=== PATIENT | male | born 1945 | race Caucasian/White ===

== ENCOUNTER 2023-11-30 17:00 | Emergency (ER) | payer MEDICARE, OTHER ==
--- NOTE | 2023-11-30 17:09 | ED ---
Abdominal Pain HPI - General Chief Complaint: Abdominal Pain Stated Complaint: Abdominal Pain Time Seen by Provider: 11/30/23 17:08 Source: patient, RN notes reviewed Mode of arrival: wheelchair Limitations: no limitations - History of Present Illness Initial Comments: This is a 78-year-old male past history of A-fib with a Watchman device presents to the emergency department as a referral from urgent care with complaint of left-sided flank and abdominal pain that started this morning around 0700. States that the pain starts in his back and wraps and around into his front, is constant and is a stabbing sensation. States that he was informed that he has blood in his urine at urgent care. Additionally, patient is incontinent. endorses nausea, no vomiting. He denies chest pain, chest pressure, dizziness, lightheadedness, blurry vision, double vision, fatigue, fevers. Denies history of kidney stones, kidney infections, urinary tract infections. Patient underwent prostate procedure for 3 years ago due to prostate cancer and cholecystectomy. Denies current use of chemo or radiation. - Related Data Previous Rx's Medication Instructions Recorded HYDROcodone/APAP 5-325MG [[place] 5] 1 each PO Q6HR PRN #12 tab 11/30/23 Ondansetron Odt [Zofran Odt] 4 mg PO Q8HR PRN #10 tab 11/30/23 Tamsulosin [Flomax] 0.4 mg PO DAILY #7 cap 11/30/23 Allergies Allergy/AdvReac Type Severity Reaction Status Date / Time ceftriaxone [From Rocephin] Allergy Rash/Hives Verified 11/30/23 17:06 polyethylene glycol 3350 AdvReac Unknown Verified 11/30/23 17:06 [From Miralax] Review of Systems ROS Statement: Those systems with pertinent positive or pertinent negative responses have been documented in the HPI. ROS Other: All systems not noted in ROS Statement are negative. Past Medical History Past Medical History: Atrial Fibrillation, Cancer, Hypertension Additional Past Medical History / Comment(s): watchman device History of Any Multi-Drug Resistant Organisms: None Reported Past Surgical History: Hernia Repair, Joint Replacement, Orthopedic Surgery, Prostate Surgery Past Psychological History: No Psychological Hx Reported Smoking Status: Never smoker Past Alcohol Use History: Occasional Past Drug Use History: None Reported General Exam Limitations: no limitations General appearance: alert, in no apparent distress Head exam: Present: atraumatic, normocephalic, normal inspection Eye exam: Present: normal appearance, PERRL, EOMI. Absent: scleral icterus, conjunctival injection, periorbital swelling ENT exam: Present: normal exam, mucous membranes moist Neck exam: Present: normal inspection. Absent: tenderness, meningismus, lymphadenopathy Respiratory exam: Present: normal lung sounds bilaterally. Absent: respiratory distress, wheezes, rales, rhonchi, stridor Cardiovascular Exam: Present: irregular rhythm (Atrial fibrillation), normal heart sounds GI/Abdominal exam: Present: soft, tenderness (left mid abdomen), normal bowel sounds. Absent: guarding, rebound, rigid, pulsatile mass, hernia Extremities exam: Present: normal inspection, full ROM, normal capillary refill. Absent: tenderness, pedal edema, joint swelling, calf tenderness Back exam: Present: normal inspection, CVA tenderness (L) Neurological exam: Present: alert, oriented X3, CN II-XII intact Psychiatric exam: Present: normal affect, normal mood Skin exam: Present: warm, dry, intact, normal color. Absent: rash Course Vital Signs 11/30/23 11/30/23 11/30/23 17:02 19:45 21:26 Temperature 98.3 F 98.6 F Pulse Rate 83 72 73 Respiratory 18 16 16 Rate Blood Pressure 190/108 129/97 126/87 O2 Sat by Pulse 98 100 98 Oximetry Medical Decision Making - Medical Decision Making Was pt. sent in by a medical professional or institution (, GAB, RN POSTPARTUM, urgent care, hospital, or group home...) When possible be specific @ -Patient was sent in by an urgent care due to complaints of left-sided abdominal pain, requested imaging to rule out other pathology such as kidney stone, kidney infection, or diverticulitis. Did you speak to anyone other than the patient for history (EMS, parent, family, police, friend...)? What history was obtained from this source @ -No Did you review nursing and triage notes (agree or disagree)? Why? @ -I reviewed and agree with nursing and triage notes Were old charts reviewed (outside hosp., previous admission, EMS record, old EKG, old radiological studies, urgent care reports/EKG's, group home records)? Report findings @ -No old charts were reviewed Differential Diagnosis (chest pain, altered mental status, abdominal pain women, abdominal pain men, vaginal bleeding, weakness, fever, dyspnea, syncope, headache, dizziness, GI bleed, back pain, seizure, CVA, palpatations, mental health, musculoskeletal)? @ -Differential Abdominal Pain Men: Appendicitis, cholecystitis, diverticulosis, ischemic bowel, pancreatitis, hepatitis, UTI, gastroenteritis, AAA, incarcerated hernia, bowel obstruction, constipation, inflammatory bowel, hepatitis, peptic ulcer disease, splenic infarction, perforated viscus, testicular torsion, this is not meant to be an all-inclusive list EKG interpreted by me (3pts min.). @ -completed at 1712, atrial fibrillation with occasional PVCs, ventricular rate 85. No acute signs of ischemia. X-rays interpreted by me (1pt min.) @ -None done CT interpreted by me (1pt min.). @ -CT abdomen pelvis without contrast reveals moderate left-sided hydroureteronephrosis with periureteral and perinephric fat stranding, 3 mm calcification in the distal left ureter U/S interpreted by me (1pt. min.). @ -None done What testing was considered but not performed or refused? (CT, X-rays, U/S, labs)? Why? @ -None What meds were considered but not given or refused? Why? @ -None Did you discuss the management of the patient with other professionals (professionals i.e. , PA, RN POSTPARTUM, lab, RT, psych nurse, social work job titles, elementary ell teacher, teacher, aircraft electronics technical officer, social work case manager)? Give summary @ -No Was smoking cessation discussed for >3mins.? @ -No Was critical care preformed (if so, how long)? @ -No Were there social determinants of health that impacted care today? How? (Homelessness, low income, unemployed, alcoholism, drug addiction, transportation, low edu. Level, literacy, decrease access to med. care, nursing home, rehab)? @ -No Was there de-escalation of care discussed even if they declined (Discuss DNR or withdrawal of care, Hospice)? DNR status @ -No What co-morbidities impacted this encounter? (DM, HTN, Smoking, COPD, CAD, Ca ncer, CVA, ARF, Chemo, Hep., AIDS, mental health diagnosis, sleep apnea, morbid obesity)? @ -None Was patient admitted / discharged? Hospital course, mention meds given and route, prescriptions, significant lab abnormalities, going to OR and other pertinent info. @ -78-year-old male with left-sided abdominal and flank pain. On examination patient noted to have tenderness over the left flank and abdomen. There is no rigidity or rebound tenderness noted. At this time patient will be treated with IV pain medication, antiemetics, and will be sent for CT imaging of the abdomen and pelvis. Additionally labs will be ordered and urinalysis, patient is agreement with this plan. CBC unremarkable, lactic acid 1.2 nonelevated. Additionally urine reveals moderate blood, 114 red blood cells. Discussion with patient at bedside that his symptoms are due to 3 mm stone. He will be provided with a urology referral. Additionally sent home with prescriptions including Zofran, Flomax, and pain medication as needed. All questions answered at bedside. Patient stable for discharge. Case discussed with Dr. Montague Undiagnosed new problem with uncertain prognosis? @ -No Drug Therapy requiring intensive monitoring for toxicity (Heparin, Nitro, Insulin, Cardizem)? @ -No Were any procedures done? @ -No Diagnosis/symptom? @ -Nephrolithiasis Acute, or Chronic, or Acute on Chronic? @ -Acute Uncomplicated (without systemic symptoms) or Complicated (systemic symptoms)? @ -Uncomplicated Side effects of treatment? @ -No Exacerbation, Progression, or Severe Exacerbation? @ -No Poses a threat to life or bodily function? How? (Chest pain, [place], [place], pneumonia, PE, COPD, DKA, ARF, appy, cholecystitis, CVA, Diverticulitis, Homicidal, Suicidal, threat to staff... and all critical care pts) @ -No - Lab Data Result diagrams: 11/30/23 17:30 11/30/23 17:30 Lab Results 11/30/23 11/30/23 11/30/23 Range/Units 17:30 17:30 17:30 WBC 7.9 (3.8-10.6) k/uL RBC 4.74 (4.30-5.90) m/uL Hgb 14.2 (13.0-17.5) gm/dL Hct 43.6 (39.0-53.0) % MCV 92.1 (80.0-100.0) fL MCH 30.1 (25.0-35.0) pg MCHC 32.6 (31.0-37.0) g/dL RDW 13.3 (11.5-15.5) % Plt Count 169 (150-450) k/uL MPV 7.7 Neutrophils % 77 % Lymphocytes % 13 % Monocytes % 7 % Eosinophils % 1 % Basophils % 0 % Neutrophils # 6.1 (1.3-7.7) k/uL Lymphocytes # 1.0 (1.0-4.8) k/uL Monocytes # 0.6 (0-1.0) k/uL Eosinophils # 0.0 (0-0.7) k/uL Basophils # 0.0 (0-0.2) k/uL Sodium 139 (137-145) mmol/L Potassium 4.5 (3.5-5.1) mmol/L Chloride 106 (98-107) mmol/L Carbon Dioxide 26 (22-30) mmol/L Anion Gap 7 mmol/L BUN 17 (9-20) mg/dL Creatinine 1.09 (0.66-1.25) mg/dL Est GFR (CKD-EPI)AfAm 75 (>60 ml/min/1.73 sqM) Est GFR (CKD-EPI)NonAf 65 (>60 ml/min/1.73 sqM) Glucose 116 H (74-99) mg/dL Plasma Lactic Acid Maurilio 1.2 (0.7-2.0) mmol/L Calcium 9.4 (8.4-10.2) mg/dL Total Bilirubin 1.3 (0.2-1.3) mg/dL AST 30 (17-59) U/L ALT 21 (4-49) U/L Alkaline Phosphatase 100 (38-126) U/L Total Protein 6.6 (6.3-8.2) g/dL Albumin 4.3 (3.5-5.0) g/dL Lipase 80 (23-300) U/L Urine Color Urine Appearance (Clear) Urine pH (5.0-8.0) Ur Specific [place] (1.001-1.035) Urine Protein (Negative) Urine Glucose (UA) (Negative) Urine Ketones (Negative) Urine Blood (Negative) Urine Nitrite (Negative) Urine Bilirubin (Negative) Urine Urobilinogen (<2.0) mg/dL Ur Leukocyte Esterase (Negative) Urine RBC (0-5) /hpf Urine WBC (0-5) /hpf Ur Squamous Epith Cells (0-4) /hpf Hyaline Casts (0-2) /lpf Urine Mucus (None) /hpf 11/30/23 Range/Units 17:30 WBC (3.8-10.6) k/uL RBC (4.30-5.90) m/uL Hgb (13.0-17.5) gm/dL Hct (39.0-53.0) % MCV (80.0-100.0) fL MCH (25.0-35.0) pg MCHC (31.0-37.0) g/dL RDW (11.5-15.5) % Plt Count (150-450) k/uL MPV Neutrophils % % Lymphocytes % % Monocytes % % Eosinophils % % Basophils % % Neutrophils # (1.3-7.7) k/uL Lymphocytes # (1.0-4.8) k/uL Monocytes # (0-1.0) k/uL Eosinophils # (0-0.7) k/uL Basophils # (0-0.2) k/uL Sodium (137-145) mmol/L Potassium (3.5-5.1) mmol/L Chloride (98-107) mmol/L Carbon Dioxide (22-30) mmol/L Anion Gap mmol/L BUN (9-20) mg/dL Creatinine (0.66-1.25) mg/dL Est GFR (CKD-EPI)AfAm (>60 ml/min/1.73 sqM) Est GFR (CKD-EPI)NonAf (>60 ml/min/1.73 sqM) Glucose (74-99) mg/dL Plasma Lactic Acid Maurilio (0.7-2.0) mmol/L Calcium (8.4-10.2) mg/dL Total Bilirubin (0.2-1.3) mg/dL AST (17-59) U/L ALT (4-49) U/L Alkaline Phosphatase (38-126) U/L Total Protein (6.3-8.2) g/dL Albumin (3.5-5.0) g/dL Lipase (23-300) U/L Urine Color Light Yellow Urine Appearance Clear (Clear) Urine pH 5.0 (5.0-8.0) Ur Specific [place] 1.013 (1.001-1.035) Urine Protein Negative (Negative) Urine Glucose (UA) Negative (Negative) Urine Ketones Negative (Negative) Urine Blood Moderate H (Negative) Urine Nitrite Negative (Negative) Urine Bilirubin Negative (Negative) Urine Urobilinogen <2.0 (<2.0) mg/dL Ur Leukocyte Esterase Negative (Negative) Urine RBC 114 H (0-5) /hpf Urine WBC 2 (0-5) /hpf Ur Squamous Epith Cells <1 (0-4) /hpf Hyaline Casts 1 (0-2) /lpf Urine Mucus Occasional H (None) /hpf Disposition Clinical Impression: Nephrolithiasis Disposition: HOME SELF-CARE Condition: Good Instructions (If sedation given, give patient instructions): Kidney Stones (ED) Additional Instructions: Return to the emergency department if your symptoms worsen or do not improve. Follow-up with urology referral. Prescriptions: Tamsulosin [Flomax] 0.4 mg PO DAILY #7 cap HYDROcodone/APAP 5-325MG [[place] 5] 1 each PO Q6HR PRN #12 tab PRN Reason: Pain Ondansetron Odt [Zofran Odt] 4 mg PO Q8HR PRN #10 tab PRN Reason: Nausea Is patient prescribed a controlled substance at d/c from ED?: No Referrals: None,Stated [Primary Care Provider] - 1-2 days Kilo Rangel MD [STAFF PHYSICIAN] - 1-2 days Time of Disposition: 20:49
[2023-11-30] MEDS: ONDANSETRON 4 MG/2 ML VIAL IVP STA (17:37)
[2023-11-30] MEDS: HYDROmorphone 1 MG/ML 1 ML SYRINGE IVP STA (17:39)
[2023-11-30 17:55] LABS: Basophils % (A) 0 %; Eosinophils % (A) 1 %; HCT 43.6 % (39.0-53.0); HGB 14.2 gm/dL (13.0-17.5); Lymphocytes % (A) 13 %; MCH 30.1 pg (25.0-35.0); MCHC 32.6 g/dL (31.0-37.0); MCV 92.1 fL (80.0-100.0); Mean Platelet Volume 7.7; Monocytes # (A) 0.6 k/uL (0-1.0); Monocytes % (A) 7 %; Neutrophils # (A) 6.1 k/uL (1.3-7.7); Neutrophils % (A) 77 %; Platelet Count 169 k/uL (150-450); RBC 4.74 m/uL (4.30-5.90); RDW 13.3 % (11.5-15.5); WBC 7.9 k/uL (3.8-10.6)
[2023-11-30 18:10] LABS: Appearance,Urine Clear (Clear); Bilirubin,Urine Negative (Negative); Blood,Urine Moderate (Negative); Color,Urine Light Yellow; Glucose,Urine (UA) Negative (Negative); Hyaline Casts,Urine 1 /lpf (0-2); Ketones,Urine Negative (Negative); Leukocyte Esterase,Urine Negative (Negative); Mucus,Urine Occasional /hpf; Nitrite,Urine Negative (Negative); Protein,Urine Negative (Negative); RBC,Urine 114 /hpf (0-5); Specific Gravity,Urine 1.013 (1.001-1.035); Squamous Epithelial Cell,Urine <1 /hpf (0-4); Urobilinogen,Urine <2.0 mg/dL (<2.0); WBC,Urine 2 /hpf (0-5)
[2023-11-30 18:32] LABS: ALT 21 U/L (4-49); AST 30 U/L (17-59); African American GFR (CKD) 75 (>60 ml/min/1.73 sqM); Albumin 4.3 g/dL (3.5-5.0); Alkaline Phosphatase 100 U/L (38-126); Anion Gap 7 mmol/L; Blood Urea Nitrogen 17 mg/dL (9-20); Calcium 9.4 mg/dL (8.4-10.2); Carbon Dioxide 26 mmol/L (22-30); Chloride 106 mmol/L (98-107); Glucose 116 mg/dL (74-99); Lipase 80 U/L (23-300); Non-African American GFR(CKD) 65 (>60 ml/min/1.73 sqM); Potassium 4.5 mmol/L (3.5-5.1); Sodium 139 mmol/L (137-145); Total Bilirubin 1.3 mg/dL (0.2-1.3); Total Protein 6.6 g/dL (6.3-8.2)
[2023-11-30 20:35] VITALS: RESP 16; TEMP 98.6
--- NOTE | 2023-11-30 20:35 | CT ---
EXAMINATION TYPE: CT abdomen pelvis wo con CT DLP: 788.4 mGycm, Automated exposure control for dose reduction was used. DATE OF EXAM: 11/30/2023 6:43 PM COMPARISON: None. CLINICAL INDICATION:Male, 78 years old with history of LLQ and flank pain, started this morning; VOMI TING/ABD PAIN TECHNIQUE: Axial CT of the abdomen and pelvis. Sagittal and coronal reformats were created on a [employer] workstation. Contrast used: mL of , (none if empty) Oral contrast used: without Oral Contrast (none if empty) FINDINGS: LOWER CHEST: Lung bases are clear. Heart size upper normal. Small calcification along the left anteri or heart may be related to coronary artery. ABDOMEN LIVER, GALLBLADDER AND BILE DUCTS: Somewhat small cirrhotic hepatic morphology suggested. Status post cholecystectomy. Nondilated biliary tree. PANCREAS: Mildly fatty infiltrated without acute findings SPLEEN: Unremarkable. ADRENAL GLANDS: Thickened and small nodular appearance of the adrenals, could be due to hyperplasia a nd/or adenomatoid changes.. KIDNEYS AND URETERS: There are a few punctate calcifications in the inferior pole right kidney. No ur eteral calculi or hydronephrosis is seen. There are several punctate and slightly larger calculi in t he mid to inferior pole left kidney. There is moderate left-sided hydroureteronephrosis with periuret eral and perinephric fat stranding, which appears related to a 3 mm calcification in the distal left ureter. PELVIS BLADDER: Otherwise unremarkable. REPRODUCTIVE: Unremarkable. ABDOMEN & PELVIS STOMACH AND BOWEL: Stomach and small bowel are nondistended, no evidence of obstruction. There appe ars to be moderately large duodenal diverticulum formation. No dilatation of the more distal bowel lo ops. Notices a gas appendicitis. There is moderate stool throughout colon without acute abnormality o bserved. PERITONEUM/RETROPERITONEUM: No evidence of pneumoperitoneum or free fluid. VASCULATURE: Mild to moderate atherosclerotic calcifications are present throughout the abdominal aor ta and its branches. No evidence of aortic aneurysm. LYMPH NODES: No enlarged nodes by CT size criteria. SOFT TISSUE/ABDOMINAL WALL: Unremarkable MUSCULOSKELETAL: No acute osseous abnormalities. Mild degenerative changes. IMPRESSION: Moderate left-sided hydroureteronephrosis with periureteral and perinephric fat stranding, which appe ars related to a 3 mm calcification in the distal left ureter.
[2023-11-30] MEDS: ONDANSETRON 4 MG ODT STARTER PACK 2 TAB BTL PO STA (21:23)
[2023-11-30 22:14] VITALS: BP 126/87; PULSE 73
== END 2023-11-30 21:27 | disposition home or self-care (01) ==
LOC: EC 17:00
DX: N13.2 Hydronephrosis with renal and ureteral calculous obstruction (principal); Z88.1 Allergy status to other antibiotic agents; Z88.8 Allergy status to other drugs, medicaments and biological substances
CPT/HCPCS: 99284 ×2; 96374 ×2; 96375 ×2; 36415; 93005; 80053; 83605; 83690; 85025; 81001; 74176; J2405; J1170; S0119

== ENCOUNTER → 2024-01-04 | Outpatient (CLI) | payer MEDICARE, OTHER ==
[2024-01-04 18:42] LABS: Basophils # (A) 0.03 X 10*3/uL (0.00-0.10); Basophils % (A) 0.4 %; Eosinophils # (A) 0.11 X 10*3/uL (0.04-0.35); Eosinophils % (A) 1.5 %; HCT 44.3 % (39.6-50.0); HGB 14.6 g/dL (13.0-17.0); Lymphocytes # (A) 1.64 X 10*3/uL (0.90-5.00); Lymphocytes % (A) 22.7 %; MCH 30.5 pg (27.0-32.0); MCV 92.7 FL (80.0-97.0); Mean Platelet Volume 10.2 FL (9.5-12.2); Monocytes # (A) 0.63 X 10*3/uL (0.20-1.00); Monocytes % (A) 8.7 %; NRBC Per 100 WBC 0 X 10*3/uL (0.00-0.01); Neutrophils # (A) 4.79 X 10*3/uL (1.80-7.70); Neutrophils % (A) 66.6 %; Platelet Count 189 X 10*3/uL (140-440); RBC 4.78 X 10*6/uL (4.40-5.60); RDW 13.2 % (11.5-14.5); WBC 7.21 X 10*3/uL (4.50-10.00)
[2024-01-04 19:13] LABS: Blood Urea Nitrogen 13.9 mg/dL (9.0-27.0); Calcium 9.8 mg/dL (8.7-10.3); Carbon Dioxide 25.3 mmol/L (21.6-31.8); Chloride 107 mmol/L (96-109); Glucose 103 mg/dL (70-110); Potassium 4.3 mmol/L (3.5-5.5); Sodium 144 mmol/L (135-145)
== END | disposition home or self-care (01) ==
LOC: LABPAT 14:09
PROVIDERS: ATTEND Urology
DX: Z01.812 Encounter for preprocedural laboratory examination (principal); N20.1 Calculus of ureter
CPT/HCPCS: 80048; 85025

== ENCOUNTER 2024-01-11 08:38 | Day surgery (SDC) | payer MEDICARE, OTHER ==
--- NOTE | 2024-01-11 07:49 | P.HPIHPCON ---
History of Present Illness H&P Date: 01/11/24 Chief Complaint: Left ureteral stone This is a 78-year-old male with a history of a 3 mm left-sided distal ureteral stone, has failed medical expulsive therapy, is having pain with nausea in association with the pain. Discussed with him given that he has failed to pass the stone spontaneously for more than 6 weeks and his symptoms I do recommend proceeding with surgical intervention. Option of left-sided ureteroscopy with homing laser was discussed. Aware the risk which includes but not limited to bleeding, infection, injury to the ureter Consent for Procedure: I have explained the operation/procedure to the patient, including the risks, benefits, side effects, alternative therapies (including not receiving the proposed treatment or service), the likelihood of the patient achieving his/her goals, and potential recuperation problems for the procedure/sedation/analgesia, as well as any blood products, if indicated. I also explained to the patient the risks, benefits and side effects of the alternatives, as well as the risks related to not receiving the proposed procedure, care, treatment, or services. 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, prostate ca 2019, bruises easily from plavix, urinary incontinence since urinary sphincter/urethra surg complications Jul/Aug 2023, EC @[facility] November 2023 for kidney stone History of Any Multi-Drug Resistant Organisms: None Reported Past Surgical History: Cholecystectomy, Heart Catheterization With Stent, Hernia Repair, Joint Replacement, Orthopedic Surgery, Prostate Surgery Additional Past Surgical History / Comment(s): left knee replacement, mirtha carpal tunnel, artificial urinary sphincter replaced Jul 2023, urethra nicked- surg Aug 2023, watchman device for Afib 2023 Past Anesthesia/Blood Transfusion Reactions: No Reported Reaction Date of Last Stent Placement:: Aug 2022 (in [place]) Smoking Status: Former smoker Medications and Allergies Home Medications Medication Instructions Recorded Confirmed Type Aspirin [Adult Low Dose Aspirin EC] 81 mg PO DAILY 01/05/24 01/05/24 History Atorvastatin [Lipitor] 40 mg PO HS 01/05/24 01/05/24 History Clopidogrel [Plavix] 75 mg PO DAILY 01/05/24 01/05/24 History Metoprolol Succinate (ER) [Toprol 25 mg PO HS 01/05/24 01/05/24 History Xl] Allergies Allergy/AdvReac Type Severity Reaction Status Date / Time ceftriaxone [From Rocephin] Allergy Rash/Hives Verified 01/05/24 12:41 polyethylene glycol 3350 AdvReac Unknown Verified 01/05/24 12:41 [From Miralax] Surgical - Exam - General no distress, no pain - Eyes normal ocular movement, no pale - ENT normal nares, normal mucosa Assessment and Plan Assessment: OR for left-sided ureteroscopy, holmium laser lithotripsy, stone basketing and stent insertion
[~2024-01-11 08:38] MED LIST: HYDROmorphone 0.5 MG/0.5 ML SYRINGE IVP PRN; MIDAZOLAM 2 MG/2 ML VIAL IV PRN
--- NOTE | 2024-01-11 08:56 | XR ---
EXAMINATION TYPE: XR KUB DATE OF EXAM: 01/11/2024 COMPARISON: None INDICATION: Kidney stone TECHNIQUE: Single view abdomen supine view FINDINGS: There is a nonspecific bowel gas pattern present. Psoas margins are normal. No organomegaly is present. Suspicious calcifications are not identified IMPRESSION: 1. Nonspecific abdomen.
[2024-01-11] MEDS: IV FLUID CONTINUATION 1,000 ML IV ONE (09:36)
[2024-01-11] MEDS: LACTATED RINGERS 1,000 ML IV SCH (09:53)
[2024-01-11] MEDS: ONDANSETRON 4 MG/2 ML VIAL IVP ONE (09:57)
[2024-01-11] MEDS: DEXAMETHASONE SOD PHOSPHATE 4 MG/ML 1 ML VIAL IV ONE (09:57)
[2024-01-11] MEDS ORDERED: MIDAZOLAM 2 MG/2 ML VIAL ONE ×2 (10:40)
[2024-01-11] MEDS ORDERED: fentaNYL (PF) 50 MCG/ML 2 ML AMP ONE ×2 (10:40)
[2024-01-11] MEDS ORDERED: LIDOCAINE 1% INJ 10MG/ML (20 ML MDV) ONE ×2 (10:40)
[2024-01-11] MEDS ORDERED: PROPOFOL 10 MG/ML 20 ML VIAL IV ONE ×2 (10:40)
[2024-01-11] MEDS ORDERED: PHENYLEPHRINE-0.9% NACL SYG 1,000 MCG/10 ML SYRINGE ONE ×2 (10:40)
[2024-01-11] MEDS: CIPROFLOXACIN/DEXTROSE PMX 400 MG in DEXTROSE/WATER 1 200ML.BAG IVPB PRN (10:45)
[2024-01-11] MEDS: IOPAMIDOL-370 50ML BTL MISCELLANE ONE (11:10)
[2024-01-11 11:42] VITALS: TEMP 97
--- NOTE | 2024-01-11 11:42 | P.OP ---
Date of Procedure: 01/11/24 Preoperative Diagnosis: Left ureteral stone Postoperative Diagnosis: Hydronephrosis Procedure(s) Performed: Cystoscopy, left ureteroscopy, balloon dilation, ureteral stent insertion Implants: 6 Belgian by 26 cm stent in the left ureter left on a string Anesthesia: LALO Surgeon: Tarun Conte Estimated Blood Loss (ml): 5 Pathology: none sent Condition: stable Disposition: PACU Indications for Procedure: This is a 78-year-old male with a history of a 3 mm left-sided distal ureteral stone, has failed medical expulsive therapy, is having pain with nausea in association with the pain. Discussed with him given that he has failed to pass the stone spontaneously for more than 6 weeks and his symptoms I do recommend proceeding with surgical intervention. Option of left-sided ureteroscopy with homing laser was discussed. 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 He was prepped and draped in sterile fashion and placed in dorsolithotomy position. Cystoscopy fitted with 21 Belgian sheath was inserted per urethra, cystoscopy was performed which showed no abnormality within the urethra, along the bulbar urethra there was evidence of a prior repair, but there was no strictures encountered, I was able to pass the scope easily into the bladder. Complete cystoscopy of the bladder showed no abnormality, both ureteral orifices were in the normal anatomical location. The left ureteral orifice was narrowed, at this point I switched to a semirigid ureteroscope which was advanced per urethra, and I attempted to advance the ureteroscope into the left ureteral orifice but given the narrowing I was unable to. This time a sensor wire was advanced through the ureteroscope and into the kidney, wire location was confirmed on fluoroscopy. Next a cystoscope was backloaded over the wire, and a 15 Belgian balloon dilator was passed over the wire, and the UVJ was dilated under fluoroscopy to 15 Belgian, after removing the balloon dilator there was a hydronephrotic drip with cloudy urine seen draining from the collecting system. At this time the semirigid ureteroscope was inserted per urethra and advanced up the left ureteral orifice, proximal to the UVJ the ureter was dilated, I advanced the ureteroscope all the way up to the proximal ureter which showed no evidence of stones, pullback ureteroscopy was performed which showed no injury to the ureter or any ureteral stones, as ureteroscope was withdrawn a sensor wire was advanced through. Next ureteral stent was passed over the wire, the proximal curl was visualized on fluoroscopy and the distal curl was visualized using the cystoscope. The stent left was left on a string and taped to the patient penis. Patient tolerated procedure was taken to recovery in stable condition
[2024-01-11 12:24] VITALS: RESP 16
[2024-01-11 12:36] VITALS: BP 128/89; PULSE 71
--- NOTE | 2024-01-11 16:17 | FL ---
Fluoroscopy INDICATION: Pain FINDINGS: Fluoroscopy time: 21.7 seconds. Total dose area product (DAP) in uGy*m?, mGy*cm? (or similar): 0.61583 Images obtained: 4. IMPRESSION: 1. Documentation of fluoroscopy.
== END 2024-01-11 13:14 | disposition home or self-care (01) ==
LOC: OR 08:38
PROVIDERS: ATTEND Urology
DX: N13.1 Hydronephrosis with ureteral stricture, not elsewhere classified (principal); Z87.442 Personal history of urinary calculi; I48.91 Unspecified atrial fibrillation; E78.5 Hyperlipidemia, unspecified; I10 Essential (primary) hypertension; Z87.891 Personal history of nicotine dependence; Z88.1 Allergy status to other antibiotic agents; Z88.8 Allergy status to other drugs, medicaments and biological substances; Z79.02 Long term (current) use of antithrombotics/antiplatelets; Z79.82 Long term (current) use of aspirin; Z79.899 Other long term (current) drug therapy
CPT/HCPCS: 74018; 52332; 52341; C2625; C1758; C1769; J2250; J1100; J2405; J2001; J3010; J0744; J2704; Q9967; J2371